=== PATIENT | male | born 2000 | race Hispanic/Latino ===

== ENCOUNTER 2022-10-03 14:12 | Emergency (ER) | payer OTHER ==
[~2022-10-03] VITALS: Ht 172.7 cm; Wt 68.0 kg
[2022-10-03 14:19] VITALS: BP 144/85
[2022-10-03 14:30] VITALS: BP 118/64
[2022-10-03 15:00] VITALS: BP 124/83
[2022-10-03 15:30] VITALS: BP 127/65
[2022-10-03 16:08] VITALS: BP 127/65
== END 2022-10-03 16:22 | disposition home or self-care (01) | DRG 556 ==
LOC: ED 14:12
DX: M25.562 Pain in left knee (principal); M25.561 Pain in right knee; V49.40XA Driver injured in collision with unspecified motor vehicles in traffic accident, initial encounter